=== PATIENT | female | born 1980 | race Caucasian/White ===

== ENCOUNTER 2017-03-10 05:52 | Outpatient (CLI) | payer BC ==
[~2017-03-10] VITALS: Ht 167.6 cm; Wt 104.8 kg
[~2017-03-10 05:52] MED LIST: ACHD5005 PO; BIRTH CONTROL PILL; CPR500T PO; CTLP20T PO; DCS100C PO; EST.1TD TD; HYDR-3583 PO; IBP600T1 PO; Ibuprofen PO; METR250T PO; METR500T PO; NAPR550T PO; NAPROXEN PO; PREN1TAB39 PO; VALA500T4 PO
== END 2017-03-10 12:50 ==
LOC: PREOP 05:52
PROVIDERS: ATTEND Surgery
DX: Z01.818 Encounter for other preprocedural examination (principal); K62.5 Hemorrhage of anus and rectum; Z80.0 Family history of malignant neoplasm of digestive organs

== ENCOUNTER 2017-03-21 10:43 | Day surgery (SDC) | payer OTHER ==
[~2017-03-21] VITALS: Ht 167.6 cm; Wt 104.8 kg
[2017-03-21] MEDS ORDERED: NS IV 500 ML 500 ML ONE (10:47)
[2017-03-21] MEDS ORDERED: NS IV 500 ML 500 ML IV PRN (11:20)
[2017-03-21] MEDS ORDERED: fentaNYL INJECTION 100 MCG/2 ML AMP ONE ×2 (11:30→11:31)
[2017-03-21] MEDS ORDERED: MIDAZOLAM 2 MG/2 ML (VERSED) VIAL ONE ×4 (11:31)
[2017-03-21 11:35] VITALS: BP 129/78
[2017-03-21] MEDS: fentaNYL INJECTION 100 MCG/2 ML AMP IVP PRN ×4 (12:05→12:17)
[2017-03-21] MEDS: MIDAZOLAM 2 MG/2 ML (VERSED) VIAL IVP PRN ×4 (12:06→12:16)
--- NOTE | 2017-03-21 12:07 | Conscious Sedation/ASA ---
Conscious Sedation Pre-Proced Time Reviewed: 11:41 ASA Class: 2 Airway Mallampati Classification: ([place] appropriate class) I. II. III, IV Lungs Heart ASA score ASA 1: a normal healthy patient ASA 2: a patient with a mild systemic disease (mid diabetes, controlled hypertension, obesity ASA 3: a patient with a severe systemic disease that limits activity (angina , COPD, prior Myocardial infarction) ASA 4: a patient with an incapacitating disease that is a constant threat to life (CHF, renal failure) ASA 5: a moribund patient not expected to survive 24 hrs. (ruptured aneurysm) ASA 6: a declared brain patient whose organs are being harvested. For emergent operations, add the letter E after the classification Grade 2 Sedation Plan: Discussed options with patient/fam Note The patient is an appropriate candidate to undergo the planned procedure, sedation, and anesthesia. The patient immediately re-assessed prior to indication. EBER FRAZIER MD Mar 21, 2017 12:07 pm
--- NOTE | 2017-03-21 12:07 | History & Physicial ---
History of Present Illness History of Present Illness Reason for visit/HPI to undergo colonoscopy regarding rectal bleeding and on the basis of a personal history of polyps, along with a family history of colon cancer Date of Admission Date Seen by Provider: Mar 21, 2017 Time Seen by Provider: 12:05 I consulted on this patient on 03/21/17 12:05 Attending Physician Eber Frazier MD Admitting Physician Luis Haque MD Consult Allergies and Home Medications Allergies Coded Allergies: latex (Unverified Allergy, Mild, RASH, 03/10/17) telithromycin (Unverified Allergy, Unknown, HIVES, 03/10/17) Uncoded Allergies: TAPE (Allergy, Unknown, 04/12/06) Home Medications No Active Prescriptions or Reported Meds Past Nxbzjak-Ivtyvw-Nycuyu Hx Patient Social History Marrital Status: Employed/Student: employed Alcohol Use: Denies Use Recreational Drug Use: No Smoking Status: Current Everyday Smoker Type Used: Cigarettes Recent Foreign Travel: No Contact w/other who traveled: No Recent Hopitalizations: No Recent Infectious Disease Expo: No Immunizations Up To Date Tetanus Booster (TDap): Less than 5yrs Date of Influenza Vaccine: May 05, 2013 Seasonal Allergies Seasonal Allergies: No Surgeries HX Surgeries: Yes (HIATAL HERNIA REP x2, x3, D&C x3, ELBOW SX) Surgeries: Hysterectomy, Oophorectomy Respiratory Hx Respiratory Disorders: No Cardiovascular Hx Cardiovascular Disorders: No Neurological Hx Neurological Disorders: No Reproductive System Hx Reproductive Disorders: No Sexually Transmitted Disease: No HIV/AIDS: No Female Reproductive Disorders: Denies, Ovarian Cyst Genitourinary Hx Genitourinary Disorders: No Gastrointestinal Hx Gastrointestinal Disorders: Yes (RECTAL BLEEDING) Musculoskeletal Hx Musculoskeletal Disorders: No Endocrine Hx Endocrine Disorders: No HEENT HX ENT Disorders: Yes (GLASSES/CONTACTS) Loss of Vision: Bilateral Hearing Impairment: Denies Cancer Hx Cancer: No Psychosocial Hx Psychiatric Problems: No Integumentary HX Skin/Integumentary Disorder: No Blood Transfusions Hx Blood Disorders: No Adverse Reaction to a Blood Tr: No (N/A) Family Medical History Family Hx: Arthritis 19 MOTHER Colon cancer 19 FATHER Hypercholesterolemia 19 FATHER Constitutional: no symptoms reported EENTM: no symptoms reported Respiratory: no symptoms reported Cardiovascular: no symptoms reported Gastrointestinal: other Genitourinary: no symptoms reported Musculoskeletal: no symptoms reported Skin: no symptoms reported Psychiatric/Neurological: No Symptoms Reported Physical Exam Vital Signs Vital Sign - Last 12Hours 03/21/17 11:35 Temp 99.1 Pulse 75 Resp 18 B/P (MAP) 129/78 Pulse Ox 96 O2 Delivery Room Air Capillary Refill : General Appearance: No Apparent Distress HEENT: Normal ENT Inspection Neck: Normal Inspection Respiratory: Lungs Clear Gastrointestinal: Non Tender, Soft Rectal: Deferred Extremity: Normal Inspection Neurologic/Psychiatric: Alert, Oriented x3 Skin: Warm/Dry Assessment/Plan Assessment and Plan lady with a personal history of polyps and a family history of colon cancer. Ongoing rectal bleeding. Colonoscopy reasonable and would be performed today. Problems: EBER FRAZIER MD Mar 21, 2017 12:07 pm
--- NOTE | 2017-03-21 12:28 | Endo Procedure Record ---
Endo Procedure Report Date of Procedure Mar 21, 2017 Surgeon (s) EBER FRAZIER MD Post Procedure/Op Diagnosis internal hemorrhoids Procedure Performed colonoscopy to cecum Description of Procedure Anesthesia Type: Conscious Sedation Specimen(s) collected/removed none Description of the Procedure Indication for procedure: This lady came in for colonoscopy on the basis of a previous history of polyps and a family history of colon cancer. In addition, she reported intermittent rectal bleeding over the past several weeks. Informed consent was obtained after reviewing the procedure in detail. Description of the procedure: She was placed in left lateral decubitus position and her vital signs were monitored. Conscious sedation was achieved using Versed and fentanyl. Digital rectal examination was unremarkable. The colonoscope was then introduced into the rectum and advanced all the way to the cecum. The scope was then withdrawn slowly and the mucosa examined in a systematic fashion. Findings: Internal hemorrhoids, the possible source of her bleeding. No recurrent polyps were found. She tolerated the procedure well and was taken back to the nursing area in a stable condition. Impression: Rectal bleeding due to hemorrhoids. Will treat conservatively. Positive family history. Recommend surveillance colonoscopy in 5 years. Copies To: SARTHAK NINA MD, XAVIER M MD Mar 21, 2017 12:27 pm
[2017-03-21 12:50] VITALS: BP 135/78
[2017-03-21 13:20] VITALS: BP 138/77
== END 2017-03-21 13:35 | disposition home or self-care (01) ==
LOC: ENDO 10:43
PROVIDERS: ATTEND Surgery
DX: K64.8 Other hemorrhoids (principal); Z86.010 Personal history of colon polyps; Z80.0 Family history of malignant neoplasm of digestive organs; F17.210 Nicotine dependence, cigarettes, uncomplicated

== ENCOUNTER 2018-05-22 16:51 | Emergency (ER) | payer OTHER ==
[~2018-05-22] VITALS: Ht 167.6 cm; Wt 99.8 kg
[2018-05-22] MEDS ORDERED: METF-399 PO (17:16)
[2018-05-22 18:22] LABS: BASOPHILS # (AUTO) 0.1 10^3/uL (0.0-0.1); BASOPHILS % (AUTO) 1 % (0-10); EOSINOPHILS # (AUTO) 0.2 10^3/uL (0.0-0.3); EOSINOPHILS % (AUTO) 3 % (0-10); HEMATOCRIT 42 % (35-52); HEMOGLOBIN 14.5 G/DL (11.5-16.0); LYMPHOCYTES # (AUTO) 3.4 X 10^3 (1.0-4.0); LYMPHOCYTES % (AUTO) 44 % (12-44); MEAN CORPUSCULAR HEMOGLOBIN 30 PG (25-34); MEAN CORPUSCULAR HGB CONC 35 G/DL (32-36); MEAN CORPUSCULAR VOLUME 86 FL (80-99); MEAN PLATELET VOLUME 10.7 FL (7.4-10.4); MONOCYTES # (AUTO) 0.5 X 10^3 (0.0-1.0); MONOCYTES % (AUTO) 6 % (0-12); NEUTROPHILS # (AUTO) 3.6 X 10^3 (1.8-7.8); NEUTROPHILS % (AUTO) 47 % (42-75); PLATELET COUNT 247 10^3/uL (130-400); RED BLOOD COUNT 4.88 10^6/uL (4.35-5.85); RED CELL DISTRIBUTION WIDTH 13.7 % (10.0-14.5); WHITE BLOOD COUNT 7.7 10^3/uL (4.3-11.0)
--- NOTE | 2018-05-22 18:27 | ED General ---
General Chief Complaint: Eye Problems Stated Complaint: VISION PROBLEMS Nursing Triage Note: STATES AROUND 1500 TODAY HER EYES FELT LIKE THEY CROSSED AND EVERYTHING WENT BLACK FOR A SPLIT SECONED. CALLED DR NINA WHO TOLD HER TO COME TO THE ER. PT IS DIABETIC AND HER BLOOD SUGAR WAS OK AT THE TIME. Nursing Sepsis Screen: No Definite Risk Source of Information: Patient Exam Limitations: No Limitations History of Present Illness Date Seen by Provider: May 22, 2018 Time Seen by Provider: 18:12 Initial Comments Here with report of feeling like she was going pass out at work today. States that she felt like she was getting weak and her eyes crossed and then her vision went black. Overall the episode lasted about 2 minutes. She did have coworkers around at the time. She did go home afterwards and check her blood sugar which was 157. She's recently had blood sugar problems and has had success with metformin. 3 weeks ago this was increased from 500 twice a day 2000 mg twice a day. She reports tolerating that well. Denies nausea or vomiting. Denies recent illness or injury. She did not fall during this episode and did not hit anything. States that she felt foggy afterwards but that is improving somewhat now. Reports eating and drinking okay. Timing/Duration: Gone Now, Other (Onset approximately 3 hours ago and lasted for one to 2 minutes.) Severity: Moderate Modifying Factors: improves with Rest Associated Systoms: No Chest Pain, No Cough, No Fever/Chills, No Nausea/ Vomiting, No Shortness of Air; Weakness Allergies and Home Medications Allergies Coded Allergies: latex (Unverified Allergy, Mild, RASH, 03/10/17) telithromycin (Unverified Allergy, Unknown, HIVES, 03/10/17) Uncoded Allergies: TAPE (Allergy, Unknown, 04/12/06) Home Medications Metformin HCl 1,000 Mg Tablet, 1,000 MG PO BID, (Reported) Patient Home Medication List Home Medication List Reviewed: Yes Review of Systems Review of Systems Constitutional: see HPI; No chills, No fever EENTM: blurred vision; No eye pain Respiratory: no symptoms reported Cardiovascular: see HPI, syncope Gastrointestinal: No abdominal pain, No nausea, No vomiting Genitourinary: No dysuria, No pain : No Musculoskeletal: no symptoms reported All Other Systems Reviewed Negative Unless Noted: Yes Past Elkkzxm-Mlbnno-Oejzuo Hx Past Med/Social Hx: Reviewed Nursing Past Med/Soc Hx Patient Social History Alcohol Use: Denies Use Recreational Drug Use: No Smoking Status: Current Everyday Smoker Type Used: Cigarettes Recent Foreign Travel: No Contact w/Someone Who Travel: No Recent Infectious Disease Expo: No Recent Hopitalizations: No Immunizations Up To Date Tetanus Booster (TDap): Less than 5yrs PED Vaccines UTD: No Date of Influenza Vaccine: May 05, 2013 Seasonal Allergies Seasonal Allergies: No Past Medical History Surgeries: Yes (HIATAL HERNIA REP x2, x3, D&C x3, ELBOW SX) Hysterectomy, Oophorectomy Respiratory: No Cardiac: No Neurological: No Reproductive Disorders: No Female Reproductive Disorders: Denies, 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 Sexually Transmitted Disease: No HIV/AIDS: No Genitourinary: No Gastrointestinal: Yes (RECTAL BLEEDING) Musculoskeletal: No Endocrine: Yes Diabetes, Non-Insulin dep HEENT: No Loss of Vision: Bilateral Hearing Impairment: Denies Cancer: No Psychosocial: No Integumentary: No Blood Disorders: No Adverse Reaction/Blood Tranf: No (N/A) Family Medical History Reviewed Nursing Family Hx Arthritis 19 MOTHER Colon cancer 19 FATHER Hypercholesterolemia 19 FATHER Physical Exam Vital Signs Vital Signs - First Documented 05/22/18 17:11 Temp 98.9 Pulse 95 Resp 16 B/P (MAP) 133/87 (102) Pulse Ox 95 O2 Delivery Room Air Capillary Refill : Less Than 3 Seconds Height, Weight, BMI Height: 5'6.00" Weight: 220lbs. 0.0oz. 99.463253xa; 37.3 BMI Method:Stated General Appearance: No Apparent Distress, WD/WN HEENT: PERRL/EOMI, Pharynx Normal Neck: Non Tender, Supple Respiratory: Lungs Clear, Normal Breath Sounds Cardiovascular: Regular Rate, Rhythm, No Murmur Gastrointestinal: Non Tender, Soft Back: Normal Inspection, No CVA Tenderness, No Vertebral Tenderness Extremity: Normal Range of Motion, Non Tender Neurologic/Psychiatric: Alert, Oriented x3, No Motor/Sensory Deficits, Normal Mood/Affect, dragger out II-XII Norm as Tested Skin: Normal Color, Warm/Dry Progress/Results/Core Measures Suspected Sepsis Recent Fever Within 48 Hours: No Infection Criteria Present: None New/Unexplained Altered Menta: No Sepsis Screen: No Definite Risk SIRS Temperature:98.9 Pulse: 95 Respiratory Rate: 16 Laboratory Tests 05/22/18 18:14: White Blood Count 7.7 Blood Pressure 133 /87 Mean: 102 Laboratory Tests 05/22/18 18:14: Creatinine 0.73, INR Comment 0.9, Platelet Count 247, Total Bilirubin 0.1 Results/Orders Lab Results Laboratory Tests Test 05/22/18 17:27 05/22/18 18:14 05/22/18 19:30 Range/Units Glucometer 110 70-110 MG/DL White Blood Count 7.7 4.3-11.0 10^3/uL Red Blood Count 4.88 4.35-5.85 10^6/uL Hemoglobin 14.5 11.5-16.0 G/DL Hematocrit 42 35-52 % Mean Corpuscular Volume 86 80-99 FL Mean Corpuscular Hemoglobin 30 25-34 PG Mean Corpuscular Hemoglobin Concent 35 32-36 G/DL Red Cell Distribution Width 13.7 10.0-14.5 % Platelet Count 247 130-400 10^3/uL Mean Platelet Volume 10.7 H 7.4-10.4 FL Neutrophils (%) (Auto) 47 42-75 % Lymphocytes (%) (Auto) 44 12-44 % Monocytes (%) (Auto) 6 0-12 % Eosinophils (%) (Auto) 3 0-10 % Basophils (%) (Auto) 1 0-10 % Neutrophils # (Auto) 3.6 1.8-7.8 X 10^3 Lymphocytes # (Auto) 3.4 1.0-4.0 X 10^3 Monocytes # (Auto) 0.5 0.0-1.0 X 10^3 Eosinophils # (Auto) 0.2 0.0-0.3 10^3/uL Basophils # (Auto) 0.1 0.0-0.1 10^3/uL Prothrombin Time 11.7 L 12.2-14.7 SEC INR Comment 0.9 0.8-1.4 Activated Partial Thromboplast Time 28 24-35 SEC D-Dimer 0.37 0.00-0.49 UG/ML Sodium Level 141 135-145 MMOL/L Potassium Level 4.2 3.6-5.0 MMOL/L Chloride Level 106 98-107 MMOL/L Carbon Dioxide Level 24 21-32 MMOL/L Anion Gap 11 5-14 MMOL/L Blood Urea Nitrogen 10 7-18 MG/DL Creatinine 0.73 0.60-1.30 MG/DL Estimat Glomerular Filtration Rate > 60 BUN/Creatinine Ratio 14 Glucose Level 96 70-105 MG/DL Calcium Level 9.5 8.5-10.1 MG/DL Corrected Calcium 9.2 8.5-10.1 MG/DL Total Bilirubin 0.1 0.1-1.0 MG/DL Aspartate Amino Transf (AST/SGOT) 10 5-34 U/L Alanine Aminotransferase (ALT/SGPT) 11 0-55 U/L Alkaline Phosphatase 73 40-136 U/L Total Protein 7.0 6.4-8.2 GM/DL Albumin 4.4 3.2-4.5 GM/DL Thyroid Stimulating Hormone (TSH) 0.97 0.35-4.94 UIU/ML Serum Test, Qualitative NEGATIVE NEGATIVE Urine Color YELLOW Urine Clarity CLEAR Urine pH 6 5-9 Urine Specific [place] 1.020 1.016-1.022 Urine Protein NEGATIVE NEGATIVE Urine Glucose (UA) NEGATIVE NEGATIVE Urine Ketones 1+ H NEGATIVE Urine Nitrite NEGATIVE NEGATIVE Urine Bilirubin NEGATIVE NEGATIVE Urine Urobilinogen NORMAL NORMAL MG/DL Urine Leukocyte Esterase 1+ H NEGATIVE Urine RBC (Auto) NEGATIVE NEGATIVE Urine RBC NONE /HPF Urine WBC 0-2 /HPF Urine Squamous Epithelial Cells 5-10 /HPF Urine Crystals NONE /LPF Urine Bacteria TRACE /HPF Urine Casts NONE /LPF Urine Mucus NEGATIVE /LPF Urine Culture Indicated NO My Orders Orders - YOHAN SQUIRES MD Thyroid Stimulating Hormone (05/22/18 18:24) Ua Culture If Indicated (05/22/18 19:28) Vital Signs/I&O 05/22/18 17:11 Temp 98.9 Pulse 95 Resp 16 B/P (MAP) 133/87 (102) Pulse Ox 95 O2 Delivery Room Air Capillary Refill : Less Than 3 Seconds Blood Pressure Mean: 102 Progress Note : Progress Note Seen and evaluated. IV, labs, UA, EKG ordered. Monitor patient. 1929: UA sent for evaluation. Overall patient is feeling better and walking and talking without difficulty. 1955: UA negative. Discharged home with return precautions. Patient verbalize understanding instructions and agreement with plan. We will send a copy the chart Dr. Nina. ECG Initial ECG Impression Date: May 22, 2018 Initial ECG Impression Time: 17:42 Initial ECG Rate: 68 Initial ECG Rhythm: Normal Sinus Initial ECG Comparisson: No Previous ECG Available Comment Sinus rhythm with normal axis. No evidence of ST elevation [place]. No previous available for comparison. Interpreted by me. Departure Impression Primary Impression: Syncope Qualified Codes: R55 - Syncope and collapse Disposition: 01 HOME, SELF-CARE Condition: Improved Departure-Patient Inst. Decision time for Depature: 19:57 Referrals: SARTHAK NINA MD (PCP/Family) Primary Care Physician Patient Instructions: Syncope (Fainting) (DC) Add. Discharge Instructions: All discharge instructions reviewed with patient and/or family. Voiced understanding. Drink plenty of fluids and eat a normal diet. Follow up with your Dr. in one to 2 days for recheck and further evaluation. Return for worse pain, fever, vomiting, weakness, rhythm problems or other concerns as needed. YOHAN SQUIRES MD May 22, 2018 18:27
[2018-05-22 18:39] LABS: FIBRIN DEGRADATION PRODUCTS 0.37 UG/ML (0.00-0.49); INR 0.9 (0.8-1.4); PROTHROMBIN TIME PATIENT 11.7 SEC (12.2-14.7)
[2018-05-22 18:49] LABS: ALANINE AMINOTRANSFERASE 11 U/L (0-55); ALBUMIN 4.4 GM/DL (3.2-4.5); ALKALINE PHOSPHATASE 73 U/L (40-136); BILIRUBIN,TOTAL 0.1 MG/DL (0.1-1.0); BUN/CREATININE RATIO 14; CALCIUM 9.5 MG/DL (8.5-10.1); CARBON DIOXIDE 24 MMOL/L (21-32); CHLORIDE 106 MMOL/L (98-107); CREATININE SERUM 0.73 MG/DL (0.60-1.30); GFR ESTIMATED > 60; GLUCOSE 96 MG/DL (70-105); POTASSIUM 4.2 MMOL/L (3.6-5.0); SODIUM 141 MMOL/L (135-145)
[2018-05-22 19:37] LABS: BILIRUBIN,URINE NEGATIVE (NEGATIVE); CLARITY,URINE CLEAR; COLOR,URINE YELLOW; GLUCOSE, URINE (UA) NEGATIVE (NEGATIVE); KETONES,URINE 1+ (NEGATIVE); LEUKOCYTE ESTERASE ,URINE 1+ (NEGATIVE); NITRITE,URINE NEGATIVE (NEGATIVE); PH,URINE 6 (5-9); PROTEIN,URINE NEGATIVE (NEGATIVE); UROBILINOGEN,URINE NORMAL (NORMAL)
[2018-05-22 19:50] LABS: BACTERIA,URINE TRACE /HPF; WBC,URINE 0-2 /HPF
[2018-05-22 20:16] VITALS: BP 0/0
== END 2018-05-22 20:16 | disposition home or self-care (01) ==
LOC: EDUNIT# 16:51 → ER 16:52
DX: R55 Syncope and collapse (principal); E11.9 Type 2 diabetes mellitus without complications; F17.210 Nicotine dependence, cigarettes, uncomplicated; Z98.890 Other specified postprocedural states; Z90.710 Acquired absence of both cervix and uterus; Z82.49 Family history of ischemic heart disease and other diseases of the circulatory system; Z87.448 Personal history of other diseases of urinary system; Z80.0 Family history of malignant neoplasm of digestive organs; Z87.19 Personal history of other diseases of the digestive system; Z91.040 Latex allergy status; Z88.0 Allergy status to penicillin
CPT/HCPCS: 36415; 80053; 81000; 82962; 84443; 84703; 85025; 85379; 85610; 85730; 93005

== ENCOUNTER 2018-10-10 08:12 | Emergency (ER) | payer OTHER ==
[~2018-10-10] VITALS: Ht 167.6 cm; Wt 99.8 kg
[~2018-10-10 08:12] MED LIST changes: +METF-399 PO
[2018-10-10] MEDS ORDERED: ASPIRIN 81 MG CHEW (CHILDREN'S ASA) PO ONE (08:30)
[2018-10-10] MEDS ORDERED: LIDOCAINE 2% VISCOUS 15 ML UDC PO ONE (08:30)
[2018-10-10] MEDS ORDERED: PANTOPRAZOLE 40 MG (PROTONIX) VIAL IV ONE (08:30)
[2018-10-10] MEDS ORDERED: ANTACID SUSP 30 ML UDC (MYLANTA) PO ONE (08:30)
--- NOTE | 2018-10-10 08:46 | ED Chest Pain ---
General Chief Complaint: Chest Pain Stated Complaint: ACID REFLUX,NUMB ARM,PCP SENT HER OVER. Source: patient Exam Limitations: no limitations (YOHAN SQUIRES MD) History of Present Illness Date Seen by Provider: Oct 10, 2018 Time Seen by Provider: 08:22 Initial Comments Here with report of acid reflux problems that started 4 days ago and then worsened through the weekend. Noted on Tuesday night that she had left arm pain. This progressively weak and intermittently until today (Tuesday) when she had reflux problems, left arm and shoulder pain and now pain that goes to her left jaw. She is diabetic and does smoke. Never had problems like this before with respect to the arm and jaw pain but does have reflux problems. She has had hiatal hernia and repair. She's had previous cholecystectomy. Usually Zantac helps but it is not helping this weekend for any length of time. Denies vomiting , sweating or breathing problems. Denies other concerns. Timing/Duration: 3-4 days Severity/Quality: moderate, burning Location: central Radiation: jaw, arms, shoulders Activities at Onset: none Prior CP/Workup: no prior chest pain Modifying Factors: improves with antacids, improves with rest ASA po REAL ESTATE ASSET MANAGER: No NTG SL REAL ESTATE ASSET MANAGER: No Associated Symptoms: abdominal pain; No back pain, No diaphoresis, No dizziness , No edema, No fever/chills; heartburn; No nausea/vomiting, No shortness of breath, No weakness (YOHAN SQUIRES MD) Allergies and Home Medications Allergies Coded Allergies: latex (Unverified Allergy, Mild, RASH, 03/10/17) telithromycin (Unverified Allergy, Unknown, HIVES, 03/10/17) Uncoded Allergies: TAPE (Allergy, Unknown, 04/12/06) Home Medications Metformin HCl 1,000 Mg Tablet, 1,000 MG PO BID, (Reported) Patient Home Medication List Home Medication List Reviewed: Yes (YOHAN SQUIRES MD) Review of Systems Review of Systems Constitutional: see HPI; No chills, No fever EENTM: See HPI; No Ear Pain Respiratory: Denies Cough, Denies Shortness of Air Cardiovascular: See HPI Gastrointestinal: See HPI; Denies Constipated, Denies Diarrhea Genitourinary: No Symptoms Reported Musculoskeletal: no symptoms reported Skin: no symptoms reported Psychiatric/Neurological: No Symptoms Reported (YOHAN SQUIRES MD) All Other Systems Reviewed Negative Unless Noted: Yes (YOHAN SQUIRES MD) Past Fabclch-Lnrvck-Xwduwd Hx Past Med/Social Hx: Reviewed Nursing Past Med/Soc Hx (YOHAN SQUIRES MD) Patient Social History Alcohol Use: Occasionally Uses Recreational Drug Use: No Smoking Status: Current Everyday Smoker Type Used: Cigarettes Recent Foreign Travel: No Contact w/Someone Who Travel: No Recent Hopitalizations: No (YOHAN SQUIRES MD) Immunizations Up To Date Tetanus Booster (TDap): Less than 5yrs PED Vaccines UTD: No Date of Influenza Vaccine: May 05, 2013 (YOHAN SQUIRES MD) Seasonal Allergies Seasonal Allergies: No (YOHAN SQUIRES MD) Past Medical History Surgeries: Yes (HIATAL HERNIA REP x2, x3, D&C x3, ELBOW SX) Gallbladder, Hysterectomy, Oophorectomy, Orthopedic Respiratory: No Cardiac: No Neurological: No Reproductive Disorders: No Female Reproductive Disorders: Denies, Ovarian Cyst CERTIFIED GENETIC COUNSELOR History: Hysterectomy Sexually Transmitted Disease: No HIV/AIDS: No Genitourinary: No Gastrointestinal: Yes (RECTAL BLEEDING) Musculoskeletal: No Endocrine: Yes Diabetes, Non-Insulin dep HEENT: No Loss of Vision: Bilateral Hearing Impairment: Denies Cancer: No Psychosocial: No Integumentary: No Blood Disorders: No Adverse Reaction/Blood Tranf: No (N/A) (YOHAN SQUIRES MD) Family Medical History Reviewed Nursing Family Hx (YOHAN SQUIRES MD) Arthritis 19 MOTHER Colon cancer 19 FATHER Hypercholesterolemia 19 FATHER Physical Exam Vital Signs Vital Signs - First Documented 10/10/18 08:15 Temp 98.1 Pulse 79 Resp 18 B/P (MAP) 156/91 (112) Pulse Ox 100 O2 Delivery Room Air (AKILAH MCDONALD) Vital Signs Capillary Refill : (YOHAN SQUIRES MD) Height, Weight, BMI Height: 5'6.00" Weight: 220lbs. 0.0oz. 99.022840yd; 37.3 BMI Method:Stated General Appearance: No Apparent Distress, WD/WN HEENT: PERRL/EOMI, Pharynx Normal Neck: Non Tender, Supple Respiratory: Lungs Clear, Normal Breath Sounds Cardiovascular: Regular Rate, Rhythm, No Murmur Gastrointestinal: Non Tender, Soft Extremity: Normal Inspection, Normal Range of Motion, Non Tender, No Calf Tenderness Neurologic/Psychiatric: Alert, Oriented x3 Skin: Normal Color, Warm/Dry (YOHAN SQUIRES MD) Progress/Results/Core Measures Results/Orders Lab Results Laboratory Tests Test 10/10/18 08:50 10/10/18 09:23 10/10/18 13:21 Range/Units White Blood Count 9.3 4.3-11.0 10^3/uL Red Blood Count 4.88 4.35-5.85 10^6/uL Hemoglobin 14.2 11.5-16.0 G/DL Hematocrit 42 35-52 % Mean Corpuscular Volume 86 80-99 FL Mean Corpuscular Hemoglobin 29 25-34 PG Mean Corpuscular Hemoglobin Concent 34 32-36 G/DL Red Cell Distribution Width 13.9 10.0-14.5 % Platelet Count 259 130-400 10^3/uL Mean Platelet Volume 10.5 H 7.4-10.4 FL Neutrophils (%) (Auto) 63 42-75 % Lymphocytes (%) (Auto) 29 12-44 % Monocytes (%) (Auto) 6 0-12 % Eosinophils (%) (Auto) 2 0-10 % Basophils (%) (Auto) 1 0-10 % Neutrophils # (Auto) 5.8 1.8-7.8 X 10^3 Lymphocytes # (Auto) 2.7 1.0-4.0 X 10^3 Monocytes # (Auto) 0.6 0.0-1.0 X 10^3 Eosinophils # (Auto) 0.1 0.0-0.3 10^3/uL Basophils # (Auto) 0.1 0.0-0.1 10^3/uL Prothrombin Time 11.9 L 12.2-14.7 SEC INR Comment 0.9 0.8-1.4 Activated Partial Thromboplast Time 30 24-35 SEC D-Dimer 0.33 0.00-0.49 UG/ML Sodium Level 141 135-145 MMOL/L Potassium Level 3.9 3.6-5.0 MMOL/L Chloride Level 106 98-107 MMOL/L Carbon Dioxide Level 24 21-32 MMOL/L Anion Gap 11 5-14 MMOL/L Blood Urea Nitrogen 8 7-18 MG/DL Creatinine 0.76 0.60-1.30 MG/DL Estimat Glomerular Filtration Rate > 60 BUN/Creatinine Ratio 11 Glucose Level 102 70-105 MG/DL Calcium Level 9.7 8.5-10.1 MG/DL Corrected Calcium 9.5 8.5-10.1 MG/DL Magnesium Level 2.0 1.8-2.4 MG/DL Total Bilirubin 0.2 0.1-1.0 MG/DL Aspartate Amino Transf (AST/SGOT) 14 5-34 U/L Alanine Aminotransferase (ALT/SGPT) 10 0-55 U/L Alkaline Phosphatase 65 40-136 U/L Myoglobin 32.7 61.2 10.0-92.0 NG/ML Troponin I < 0.028 < 0.028 <0.028 NG/ML Total Protein 6.6 6.4-8.2 GM/DL Albumin 4.2 3.2-4.5 GM/DL Lipase 38 8-78 U/L Thyroid Stimulating Hormone (TSH) 0.69 0.35-4.94 UIU/ML (AKILAH MCDONALD) Medications Given in ED Current Medications Medications Dose Ordered Sig/Beatriz Route Start Time Stop Time Status Last Admin Dose Admin Al Hydrox/Mg Hydrox/Simethicone 30 ml ONCE ONCE PO 10/10/18 08:30 10/10/18 08:31 DC 10/10/18 09:00 30 ML Aspirin 324 mg ONCE ONCE PO 10/10/18 08:30 10/10/18 08:31 DC 10/10/18 09:00 324 MG Diphenhydramine HCl 50 mg ONCE ONCE IVP 10/10/18 09:45 10/10/18 09:46 DC 10/10/18 09:45 50 MG Iohexol 100 ml ONCE ONCE IV 10/10/18 10:15 10/10/18 10:51 DC 10/10/18 12:00 100 ML Lidocaine HCl 15 ml ONCE ONCE PO 10/10/18 08:30 10/10/18 08:31 DC 10/10/18 09:00 15 ML Morphine Sulfate 10 mg STK-MED ONCE .ROUTE 10/10/18 09:25 10/10/18 09:31 DC 10/10/18 09:33 10 MG Pantoprazole 40 mg ONCE ONCE IV 10/10/18 08:30 10/10/18 08:31 DC 10/10/18 09:00 40 MG Sodium Chloride 100 ml ONCE ONCE IV 10/10/18 10:15 10/10/18 10:51 DC 10/10/18 12:00 80 ML (AKILAH MCDONALD STUDENT) Vital Signs/I&O 10/10/18 10/10/18 08:15 08:15 Temp 98.1 Pulse 79 Resp 18 B/P (MAP) 156/91 (112) Pulse Ox 100 O2 Delivery Room Air (AKILAH MCDONALD STUDENT) Progress Progress Note : Progress Note Seen and evaluated. IV, labs, EKG and chest x-ray ordered. ASA 324 mg by mouth ordered. GI cocktail and Protonix 40 mg IV ordered. Monitor patient. Patient did get morphine 4 mg IV and then ultimately Toradol 30 mg IV. After morphine she did have some itching so did get Benadryl 50 mg IV. Patient still had some pain so CT abdomen and pelvis ordered. Monitor patient. 1400: Patient had repeat labs and EKG and this did not show any significant change in troponin and EKG remains normal. CT abdomen pelvis is negative. Patient is completely resolved currently. Ultimately she would like to go home. We did have a conversation about follow-up and she has follow up with Dr. Nina on and she will keep that appointment. She will start omeprazole [id number] pending his evaluation. We also discussed the need for surgical follow-up for upper endoscopy. That can be set up her primary doctor. Discharged home with return precautions. Patient verbalize understanding instructions and agreement with plan. (YOHAN SQUIRES MD) Initial ECG Impression Date: Oct 10, 2018 Initial ECG Impression Time: 08:22 Initial ECG Rate: 78 Initial ECG Rhythm: Normal Sinus Initial ECG Impression: Normal Initial ECG Comparisson: No Previous ECG Available Comment Sinus rhythm with normal axis. No evidence of ST elevation NV. Similar to previous of 05/22/18. Interpreted by me. (YOHAN SQUIRES MD) Initial ECG Comparisson: Unchanged (AKILAH MCDONALD STUDENT) Diagnostic Imaging Diagonstic Imaging: Xray Plain Films/CT/US/NM/MRI: chest Comments [facility] [place], [place] NAME: YODIT EATON [facility] REC#: [id number] PT STATUS: REG ER : 1980 PHYSICIAN: YOHAN SQUIRES MD ADMIT DATE: 10/10/18/ER Draft Date of Exam:10/10/18 CHEST 1 VIEW, AP/PA ONLY Clinical indication: Patient with acid reflux with tingling in left arm times approximately 4 days. Patient states left facial numbness started this morning. Exam: Portable chest x-ray upright view. Comparisons: None. Findings: Limited evaluation of the anatomical structures due to patient body habitus. Lungs/pleura: Lungs are clear. There is no pneumothorax. There is no pleural effusion. Mediastinum: Unremarkable. Pulmonary vasculature: Unremarkable. Heart: Unremarkable. Bones/extrathoracic soft tissue: Unremarkable. Impression: There is no radiographic evidence of acute cardiopulmonary process. Dictated on workstation # [id number] Dict: 10/10/18 0910 Trans: 10/10/18 0915 [facility] [id number] Interpreted by: HAWA PATINO MD Electronically signed by: (YOHAN SQUIRES MD) Diagonstic Imaging: CT Plain Films/CT/US/NM/MRI: abdomen, pelvis Comments [facility] [place] [place] NAME: YODIT EATON [facility] REC#: [id number] PT STATUS: REG ER : 1980 PHYSICIAN: YOHAN SQUIRES MD ADMIT DATE: 10/10/18/ER Draft Date of Exam:10/10/18 CT ABDOMEN/PELVIS W PROCEDURE: CT abdomen and pelvis with contrast. TECHNIQUE: Multiple contiguous axial images were obtained through the abdomen and pelvis after administration of intravenous contrast. INDICATION: Upper abdominal pain. History of hiatal hernia surgery. COMPARISON: CT abdomen and pelvis with IV contrast 05/04/2014. FINDINGS: Lung bases are clear. Cholecystectomy. No hiatal hernia. The liver, pancreas, spleen, adrenals, kidneys, collecting systems, and unopacified bladder are negative. Hysterectomy. Appendectomy. No free intraperitoneal air or fluid. No lymphadenopathy. No evidence of bowel obstruction or inflammation. No acute osseous findings. IMPRESSION: No acute CT findings in the abdomen or pelvis. Chronic findings as above. Dictated on workstation # [id number] Dict: 10/10/18 1220 Trans: 10/10/18 1230 [id number] Interpreted by: TIM SANCHEZ MD Electronically signed by: Time of Consult: 12:20 (AKILAH MCDONALD STUDENT) Departure Impression Primary Impression: Upper abdominal pain Additional Impression: Chest pain Qualified Codes: R07.9 - Chest pain, unspecified Disposition: HOME, SELF-CARE Condition: Improved Departure-Patient Inst. Decision time for Depature: 14:10 (YOHAN SQUIRES MD) Referrals: SARTHAK NINA MD (PCP/Family) Primary Care Physician Patient Instructions: Acute Abdomen (Belly Pain), Adult (DC), Chest Pain (DC) Add. Discharge Instructions: All discharge instructions reviewed with patient and/or family. Voiced understanding. Follow-up with your doctor on for recheck and further evaluation and for discussion of referral to surgeon for upper endoscopy (scope) and possible referral to cardiology for stress test as indicated. You may take omeprazole qmmt-vfa-esuoour 20 mg one tab daily for the next 2 weeks or until changed by her doctor. Drink plenty of fluids and eat a light diet. Return for worse pain, fever, vomiting, weakness, breathing problems, chest pain or other concerns as needed. Copy Copies To 1: SARTHAK NINA MD, TIMOTHY D MD Oct 10, 2018 08:46 AKILAH MCDONALD STUDENT Oct 10, 2018 13:32
[2018-10-10 09:05] LABS: BASOPHILS # (AUTO) 0.1 10^3/uL (0.0-0.1); BASOPHILS % (AUTO) 1 % (0-10); EOSINOPHILS # (AUTO) 0.1 10^3/uL (0.0-0.3); EOSINOPHILS % (AUTO) 2 % (0-10); HEMATOCRIT 42 % (35-52); HEMOGLOBIN 14.2 G/DL (11.5-16.0); LYMPHOCYTES # (AUTO) 2.7 X 10^3 (1.0-4.0); LYMPHOCYTES % (AUTO) 29 % (12-44); MEAN CORPUSCULAR HEMOGLOBIN 29 PG (25-34); MEAN CORPUSCULAR HGB CONC 34 G/DL (32-36); MEAN CORPUSCULAR VOLUME 86 FL (80-99); MEAN PLATELET VOLUME 10.5 FL (7.4-10.4); MONOCYTES # (AUTO) 0.6 X 10^3 (0.0-1.0); MONOCYTES % (AUTO) 6 % (0-12); NEUTROPHILS # (AUTO) 5.8 X 10^3 (1.8-7.8); NEUTROPHILS % (AUTO) 63 % (42-75); PLATELET COUNT 259 10^3/uL (130-400); RED CELL DISTRIBUTION WIDTH 13.9 % (10.0-14.5); WHITE BLOOD COUNT 9.3 10^3/uL (4.3-11.0)
--- NOTE | 2018-10-10 09:16 | Diagnostic Imaging Report ---
Clinical indication: Patient with acid reflux with tingling in left arm times approximately 4 days. Patient states left facial numbness started this morning. Exam: Portable chest x-ray upright view. Comparisons: None. Findings: Limited evaluation of the anatomical structures due to patient body habitus. Lungs/pleura: Lungs are clear. There is no pneumothorax. There is no pleural effusion. Mediastinum: Unremarkable. Pulmonary vasculature: Unremarkable. Heart: Unremarkable. Bones/extrathoracic soft tissue: Unremarkable. Impression: There is no radiographic evidence of acute cardiopulmonary process. Dictated by: Dictated on workstation # [id number]
[2018-10-10 09:17] LABS: INR 0.9 (0.8-1.4); PROTHROMBIN TIME PATIENT 11.9 SEC (12.2-14.7)
[2018-10-10] MEDS ORDERED: morphine INJ 10 MG/ML 1ML (SYR OR VIAL) ONE (09:25)
[2018-10-10] MEDS ORDERED: diphenhydrAMINE 50 MG/ML INJ (BENADRYL) ONE (09:37)
[2018-10-10] MEDS ORDERED: diphenhydrAMINE 50 MG/ML INJ (BENADRYL) IVP ONE (09:45)
[2018-10-10 09:46] LABS: ALANINE AMINOTRANSFERASE 10 U/L (0-55); ALBUMIN 4.2 GM/DL (3.2-4.5); ALKALINE PHOSPHATASE 65 U/L (40-136); BILIRUBIN,TOTAL 0.2 MG/DL (0.1-1.0); BUN/CREATININE RATIO 11; CALCIUM 9.7 MG/DL (8.5-10.1); CARBON DIOXIDE 24 MMOL/L (21-32); CHLORIDE 106 MMOL/L (98-107); CREATININE SERUM 0.76 MG/DL (0.60-1.30); GFR ESTIMATED > 60; GLUCOSE 102 MG/DL (70-105); LIPASE 38 U/L (8-78); POTASSIUM 3.9 MMOL/L (3.6-5.0); SODIUM 141 MMOL/L (135-145); TOTAL PROTEIN 6.6 GM/DL (6.4-8.2)
[2018-10-10] MEDS ORDERED: KETOROLAC 30 MG/ML VIAL ONE (09:57)
[2018-10-10] MEDS ORDERED: KETOROLAC 30 MG/ML VIAL IVP STA (10:00)
[2018-10-10 10:05] LABS: MYOGLOBIN SERUM 32.7 NG/ML (10.0-92.0)
[2018-10-10] MEDS ORDERED: NS IV 1000 ML 1,000 ML IV STA (10:08)
[2018-10-10] MEDS ORDERED: NS 100 ML (IVPB) BAG IV ONE (10:15)
[2018-10-10] MEDS ORDERED: IOHEXOL 350 MG/ML 100 ML (OMNIPAQUE 350) VIAL IV ONE (10:15)
[2018-10-10] MEDS ORDERED: RECEIVED CONTRAST (Hold Metformin) IV SCH (10:15)
--- NOTE | 2018-10-10 12:31 | Diagnostic Imaging Report ---
PROCEDURE: CT abdomen and pelvis with contrast. TECHNIQUE: Multiple contiguous axial images were obtained through the abdomen and pelvis after administration of intravenous contrast. INDICATION: Upper abdominal pain. History of hiatal hernia surgery. COMPARISON: CT abdomen and pelvis with IV contrast 05/04/2014. FINDINGS: Lung bases are clear. Cholecystectomy. No hiatal hernia. The liver, pancreas, spleen, adrenals, kidneys, collecting systems, and unopacified bladder are negative. Hysterectomy. Appendectomy. No free intraperitoneal air or fluid. No lymphadenopathy. No evidence of bowel obstruction or inflammation. No acute osseous findings. IMPRESSION: No acute CT findings in the abdomen or pelvis. Chronic findings as above. Dictated by: Dictated on workstation # [id number]
--- NOTE | 2018-10-10 13:44 | NUR ---
PT STATES FEELING MUCH BETTER
[2018-10-10 13:48] LABS: MYOGLOBIN SERUM 61.2 NG/ML (10.0-92.0)
[2018-10-10 14:20] VITALS: BP 116/70
== END 2018-10-10 14:21 | disposition home or self-care (01) ==
LOC: EDUNIT# 08:12 → ER 08:15
DX: R10.10 Upper abdominal pain, unspecified (principal); R07.9 Chest pain, unspecified; E11.9 Type 2 diabetes mellitus without complications; F17.210 Nicotine dependence, cigarettes, uncomplicated; Z82.49 Family history of ischemic heart disease and other diseases of the circulatory system; Z80.0 Family history of malignant neoplasm of digestive organs; Z98.890 Other specified postprocedural states; Z87.19 Personal history of other diseases of the digestive system; Z90.710 Acquired absence of both cervix and uterus; Z87.448 Personal history of other diseases of urinary system; Z91.040 Latex allergy status; Z88.1 Allergy status to other antibiotic agents; Z91.048 Other nonmedicinal substance allergy status; Z79.84 Long term (current) use of oral hypoglycemic drugs; Z90.49 Acquired absence of other specified parts of digestive tract
CPT/HCPCS: 36415; 71045; 74177; 80053; 83690; 83735; 83874; 84443; 84484; 85025; 85379; 85610; 85730; 93005; 93041; 96361; 96374; 96375

== ENCOUNTER → 2018-11-23 | Outpatient (CLI) | payer OTHER ==
--- NOTE | 2018-11-23 19:56 | Diagnostic Imaging Report ---
INDICATION: Gastroesophageal reflux. TECHNIQUE: Patient was administered 1.1 mCi technetium 99m sulfur colloid labeled to the test meal and imaging over the abdomen was performed. FINDINGS: Time of half emptying of the test meal was calculated to be approximately 99 minutes. Normal values are typically 30-90 minutes. IMPRESSION: Slightly delayed gastric emptying. Dictated by: Dictated on workstation # [id number]
== END ==
LOC: RAD 08:30
PROVIDERS: ATTEND Surgery
DX: K21.0 Gastro-esophageal reflux disease with esophagitis (principal)
CPT/HCPCS: 78264

== ENCOUNTER → 2019-09-26 | Outpatient (CLI) | payer BC, OTHER ==
--- NOTE | 2019-09-26 14:38 | Diagnostic Imaging Report ---
INDICATION: Routine screening. Comparison is made with prior mammogram from 05/01/2007. 2-D and 3-D bilateral screening mammography was performed. The current study was also evaluated with a Computer Aided Detection (CAD) system. 3-D tomosynthesis was also performed and reviewed. FINDINGS: Scattered fibroglandular densities are identified bilaterally. No dominant mass or malignant-appearing microcalcifications are seen. Axillae are unremarkable. IMPRESSION: No mammographic features suspicious for malignancy are identified. ACR BI-RADS Category 1: Negative. Result letter will be mailed to the patient. Note: At least 10% of breast cancer is not imaged by mammography. Dictated by: Dictated on workstation # [id number]
== END ==
LOC: RAD 09:30
PROVIDERS: ATTEND Family Medicine
DX: Z12.31 Encounter for screening mammogram for malignant neoplasm of breast (principal)
CPT/HCPCS: 77067

== ENCOUNTER 2019-10-23 05:35 | Outpatient (CLI) | payer BC ==
[~2019-10-23] VITALS: Ht 167 cm; Wt 110.0 kg
[2019-10-23] MEDS ORDERED: GLYB5TAB6 PO (10:40)
== END 2019-10-23 10:47 | disposition home or self-care (01) ==
LOC: PREOP 05:35
PROVIDERS: ATTEND Surgery
DX: Z01.818 Encounter for other preprocedural examination (principal)

== ENCOUNTER 2019-10-30 08:49 | Day surgery (SDC) | payer BC ==
[~2019-10-30] VITALS: Ht 167 cm; Wt 110.0 kg
[~2019-10-30 08:49] MED LIST changes: +GLYB5TAB6 PO
[2019-10-30] MEDS ORDERED: LACTATED RINGERS 1,000 ML IV ONE (08:51)
[2019-10-30] MEDS ORDERED: LACTATED RINGERS 1,000 ML IV STA (08:57)
[2019-10-30] MEDS ORDERED: PROPOFOL INJECTION 50 ML IV ONE (09:03)
[2019-10-30] MEDS ORDERED: MIDAZOLAM 2 MG/2 ML (VERSED) VIAL ONE (09:03)
--- NOTE | 2019-10-30 09:06 | Progress Note-Pre Operative ---
Pre-Operative Progress Note H&P Reviewed The H&P was reviewed, patient examined and no changes noted. Date Seen by Provider: Oct 30, 2019 Time Seen by Provider: 09: Date H&P Reviewed: Oct 30, 2019 Time H&P Reviewed: 09:06 Pre-Operative Diagnosis: family history of colon cancer, hx of polyps GINA BLACKWOOD DO Oct 30, 2019 09:06
[2019-10-30 09:11] VITALS: BP 118/82
--- NOTE | 2019-10-30 09:48 | Progress Note-Post Operative ---
Post-Operative Progess Note Surgeon (s)/Nursing Home Physician (s) Surgeon GINA BLACKWOOD DO Nursing Home Physician: NA Pre-Operative Diagnosis family history of colon cancer, hx of polyps Post-Operative Diagnosis Normal Colon Procedure & Operative Findings Date of Procedure 10/30/19 Procedure Performed/Findings Colonoscopy Anesthesia Type per NOVELTY TWISTER OPERATOR Estimated Blood Loss Estimated blood loss (mL): None Specimens/Packing Specimens Removed None GINA BLACKWOOD DO Oct 30, 2019 09:48
[2019-10-30 09:50] VITALS: BP 136/76
--- NOTE | 2019-10-30 09:50 | Discharge Inst-Simple/Standard ---
Discharge Inst-Standard Patient Instructions/Follow Up Plan of Care/Instructions/FU: Patient needs follow up colonoscopy in five years due to family history of colon cancer. Activity as Tolerated: Yes Discharge Diet: Regular Diet GINA BLACKWOOD DO Oct 30, 2019 09:50
[2019-10-30 09:55] VITALS: BP 116/59
[2019-10-30 10:20] VITALS: BP 118/82
[2019-10-30 10:50] VITALS: BP 118/82
--- NOTE | 2019-10-30 14:08 | OPERATIVE REPORT ---
DATE OF SERVICE: 10/30/2019 PREOPERATIVE DIAGNOSIS: Family history of colon cancer, personal history of colon polyps. POSTOPERATIVE DIAGNOSIS: Normal colon. PROCEDURE: Colonoscopy. SURGEON: Gina Veliz DO. ANESTHESIA: Per CASE WORKER. ESTIMATED BLOOD LOSS: None. COMPLICATIONS: None. INDICATIONS: The patient is a 39-year-old female with family history of colon cancer and personal history of polyps. She understands the risks and benefits of the procedure and wished to proceed with the procedure. Consent was signed in the chart. DESCRIPTION OF PROCEDURE: The patient was taken to the endoscopy suite and placed in a left lateral recumbent position. Timeout was performed. Digital rectal exam was performed. There were no palpable polyps, masses or ulcerations. Scope was inserted in the rectum and advanced all the way to cecum with minimal difficulty. Prep was adequate. Scope was then slowly retracted back. There were no polyps, masses or ulcerations within the cecum, ascending, transverse, descending and sigmoid colon. Once in the rectum, scope was retroflexed noting no other pathology. Scope was returned to its normal position, slowly withdrawn until completely removed. The patient tolerated the procedure well without any complications. She was taken to recovery room in stable condition. RECOMMENDATIONS: The patient will need repeat colonoscopy in 5 years due to family history of colon cancer and personal history of polyps. Any issues before that will be seen at that time. Job ID: [id number] DocumentID: [id number] Dictated Date: 10/30/2019 09:49:14 Supportability Engineer Date: 10/30/2019 14:08:03 Dictated By: GINA VELIZ DO
--- NOTE | 2019-10-31 08:02 | Anesthesia-General Post-Op ---
MAC Patient Condition Mental Status/LOC: Same as Preop Cardiovascular: Satisfactory Nausea/Vomiting: Absent Respiratory: Satisfactory Pain: Controlled Complications: Absent Post Op Complications Complications None Follow Up Care/Instructions Patient Instructions None needed. Anesthesiology Discharge Order Discharge Order Patient is doing well, no complaints, stable vital signs, no apparent adverse anesthesia problems. No complications reported per nursing. ANA ROSA ANDREWS CRNA Oct 31, 2019 08:02
== END 2019-10-30 10:50 | disposition home or self-care (01) ==
LOC: ENDO 08:49
PROVIDERS: ATTEND Surgery
DX: Z12.11 Encounter for screening for malignant neoplasm of colon (principal); E11.9 Type 2 diabetes mellitus without complications; E66.9 Obesity, unspecified; Z86.010 Personal history of colon polyps; Z80.0 Family history of malignant neoplasm of digestive organs; Z91.048 Other nonmedicinal substance allergy status; Z91.040 Latex allergy status; Z88.1 Allergy status to other antibiotic agents; Z79.84 Long term (current) use of oral hypoglycemic drugs; Z79.899 Other long term (current) drug therapy; Z87.891 Personal history of nicotine dependence; Z68.39 Body mass index [BMI] 39.0-39.9, adult; Z90.710 Acquired absence of both cervix and uterus; Z90.49 Acquired absence of other specified parts of digestive tract; Z82.61 Family history of arthritis
CPT/HCPCS: 82962

== ENCOUNTER → 2021-06-08 | Outpatient (CLI) | payer BC ==
[~2021-06-08] MED LIST changes: +GLBR5T PO; -GLYB5TAB6 PO
--- NOTE | 2021-06-08 17:53 | Diagnostic Imaging Report ---
EXAM: Digital mammogram bilateral screening COMPARISON: This study was compared to the prior exam of 09/26/2019. At this time, there are no current complaints. The current study was also evaluated with a Computer Aided Detection (CAD) system. FINDINGS: There are scattered fibroglandular densities in both breasts which could obscure a lesion. Overall, there does not appear to have been any significant change when compared to the prior exam. No primary or secondary sign of malignancy is noted. IMPRESSION: There is no radiographic evidence for malignancy. ACR category 1 ACR BI-RADS Category 1: Negative. Result letter will be mailed to the patient. Note: At least 10% of breast cancer is not imaged by mammography. Dictated by: Dictated on workstation # [id number]
== END ==
LOC: RAD 14:30
PROVIDERS: ATTEND Family Medicine
DX: Z12.31 Encounter for screening mammogram for malignant neoplasm of breast (principal)
CPT/HCPCS: 77063; 77067

== ENCOUNTER → 2021-10-01 | Outpatient (CLI) | payer BC ==
[~2021-10-01] MED LIST changes: +BARIUM for suspension 96% w/w (Vanilla Silq Medium Density) PO ONE; +BARIUM for suspension 98% w/w (Vanilla Silq High Density) PO ONE
--- NOTE | 2021-10-01 11:18 | Diagnostic Imaging Report ---
Indication: Dysphasia. Patient ingested effervescent crystals as well as thin and thick barium and imaging of the esophagus was performed at multiple obliquities. Total of 0.94 minutes of fluoroscopic time was utilized. 60 images were obtained. The esophagus has a smooth contour. No mass or stricture is seen. No gastroesophageal reflux or hiatal hernia was demonstrated. There appear to be postoperative changes near the GE junction. Visualized stomach is unremarkable. IMPRESSION: Postop changes at the GE junction. Study is essentially unremarkable. Dictated by: Dictated on workstation # [id number]
== END ==
LOC: RAD 09:45
PROVIDERS: ATTEND Surgery
DX: R13.10 Dysphagia, unspecified (principal); Z98.890 Other specified postprocedural states
CPT/HCPCS: 74220

== ENCOUNTER 2021-10-16 05:29 | Outpatient (RCR) | payer BC ==
[~2021-10-16] VITALS: Ht 167 cm; Wt 107.0 kg
== END 2021-10-16 13:49 | disposition home or self-care (01) ==
LOC: PREOP 05:29
PROVIDERS: ATTEND Surgery
DX: Z01.818 Encounter for other preprocedural examination (principal); R13.10 Dysphagia, unspecified

== ENCOUNTER → 2021-10-16 | Outpatient (CLI) | payer BC ==
[~2021-10-16] MED LIST changes: -BARIUM for suspension 96% w/w (Vanilla Silq Medium Density) PO ONE; -BARIUM for suspension 98% w/w (Vanilla Silq High Density) PO ONE; +DULA1.5P2 SQ
== END ==
LOC: LABNPT 06:38
PROVIDERS: ATTEND Surgery
DX: Z20.822 Contact with and (suspected) exposure to COVID-19 (principal)
CPT/HCPCS: 87636

== ENCOUNTER 2021-10-20 09:30 | Day surgery (SDC) | payer BC ==
[~2021-10-20] VITALS: Ht 167.6 cm; Wt 107.0 kg
[2021-10-20] MEDS ORDERED: LACTATED RINGERS 1,000 ML IV STA (09:34)
[2021-10-20] MEDS ORDERED: LACTATED RINGERS 1,000 ML IV ONE (09:37)
[2021-10-20 09:45] VITALS: BP 116/75
[2021-10-20] MEDS ORDERED: HURRICAINE EXT TUBE (BENZOCAINE) XX PRN (09:45)
[2021-10-20] MEDS ORDERED: MIDAZOLAM 2 MG/2 ML (VERSED) VIAL ONE (10:14)
[2021-10-20] MEDS ORDERED: proPOfol 200 MG/20 ML (DIPRIVAN) VIAL IV ONE (10:14)
[2021-10-20 10:35] VITALS: BP 132/66
[2021-10-20 10:40] VITALS: BP 129/68
--- NOTE | 2021-10-20 10:42 | Progress Note-Post Operative ---
Post-Operative Progess Note Surgeon (s)/Crime Laboratory Analyst (s) Surgeon GINA BLACKWOOD DO Crime Laboratory Analyst: na Pre-Operative Diagnosis dysphagia Post-Operative Diagnosis gastritis,duodenitis Procedure & Operative Findings Date of Procedure 10/20/21 Procedure Performed/Findings egd c biopsies Anesthesia Type per braiding machine operator Estimated Blood Loss Estimated blood loss (mL): none Specimens/Packing Specimens Removed duodenum, antrum, ge GINA BLACKWOOD DO Oct 20, 2021 10:42
[2021-10-20 10:45] VITALS: BP 132/68
[2021-10-20] MEDS ORDERED: PANT40TA2 PO (10:46)
--- NOTE | 2021-10-20 10:47 | Discharge Inst-Simple/Standard ---
Discharge Inst-Standard Discharge Medications New, Converted or Re-Newed RX: Transmitted to Pharmacy Patient Instructions/Follow Up Plan of Care/Instructions/FU: 2-3 weeks Keren Activity as Tolerated: Yes Discharge Diet: Regular Diet GINA BLACKWOOD DO Oct 20, 2021 10:47
[2021-10-20 11:05] VITALS: BP 133/75
[2021-10-20 11:15] VITALS: BP 133/75
--- NOTE | 2021-10-20 11:54 | Anesthesia-General Post-Op ---
MAC Patient Condition Mental Status/LOC: Same as Preop Cardiovascular: Satisfactory Nausea/Vomiting: Absent Respiratory: Satisfactory Pain: Controlled Complications: Absent Post Op Complications Complications None Follow Up Care/Instructions Patient Instructions None needed. Anesthesiology Discharge Order Discharge Order Patient is doing well, no complaints, stable vital signs, no apparent adverse anesthesia problems. No complications reported per nursing. RODRIGO RUSSELL CRNA Oct 20, 2021 11:54
--- NOTE | 2021-10-20 18:26 | OPERATIVE REPORT ---
DATE OF SERVICE: 10/20/2021 PREOPERATIVE DIAGNOSIS: Dysphagia. POSTOPERATIVE DIAGNOSES: Gastritis, duodenitis, PROCEDURE: EGD with biopsies. SURGEON: Gina Veliz DO ANESTHESIA: Per RESIDENTIAL SOLAR SALES CONSULTANT. ESTIMATED BLOOD LOSS: None. COMPLICATIONS: None. SPECIMENS: Duodenum, antrum and GE junction. INDICATIONS: The patient is a 41-year-old female who has history of hiatal hernia repair. She has been having some dysphagia symptoms. She understands risks and benefits of procedure and wishes to proceed. Consent was signed in the chart. DESCRIPTION OF PROCEDURE: The patient was taken to the endoscopy suite, placed in left lateral recumbent position. Timeout was performed. Scope was inserted in mouth, down the esophagus, stomach and into the duodenum without difficulty. Second portion of duodenum had normal appearance. Scope was slowly retracted and the first portion of duodenum had some erythematous changes. Biopsy of the duodenum was obtained. Scope was then slowly retracted back into the stomach, which had erythematous hue slight appearance of gastritis. Biopsy of the antrum was obtained. Scope was retroflexed noting an intact wrap fundoplication. No other pathology noted. Scope was returned to its normal position. Scope was then slowly retracted back to the distal esophagus. Biopsy of the GE junction was obtained. No polyps, masses or ulcerations. Scope was slowly retracted back until completely removed. The patient tolerated the procedure well without any complications. She was taken to recovery room in stable condition. RECOMMENDATIONS: The patient will change omeprazole to Protonix 40 mg daily. We will follow up in two to three weeks to see how her symptoms are doing. Follow up on pathology. Job ID: [id number] DocumentID: [id number] Dictated Date: 10/20/2021 10:44:31 Coupon Redemption Clerk Date: 10/20/2021 18:26:16 Dictated By: GINA VELIZ DO
== END 2021-10-20 11:15 | disposition home or self-care (01) ==
LOC: ENDO 09:30
PROVIDERS: ATTEND Surgery
DX: K29.70 Gastritis, unspecified, without bleeding (principal); K29.80 Duodenitis without bleeding; K20.90 Esophagitis, unspecified without bleeding; F17.210 Nicotine dependence, cigarettes, uncomplicated

== ENCOUNTER → 2021-12-31 | Outpatient (CLI) | payer BC ==
[~2021-12-31] MED LIST changes: +PANT40TA2 PO
--- NOTE | 2021-12-31 10:36 | Diagnostic Imaging Report ---
INDICATION: Cough since Tuesday. EXAMINATION: 2 view chest 12/31/2021. COMPARISON: 10/10/2018 FINDINGS: The cardiomediastinal silhouette is unremarkable. The pulmonary vasculature is within normal limits. The lungs and pleural spaces are clear. IMPRESSION: No evidence of an acute cardiopulmonary process. Dictated by: Dictated on workstation # [id number]
== END ==
LOC: RAD 08:59
PROVIDERS: ATTEND Family Medicine
DX: R05.9 Cough, unspecified (principal)
CPT/HCPCS: 71046

== ENCOUNTER → 2022-07-12 | Outpatient (CLI) | payer BC ==
--- NOTE | 2022-07-12 10:58 | Diagnostic Imaging Report ---
INDICATION: Routine screening. COMPARISON: 06/08/2021 and 09/26/2019. TECHNIQUE: 2D and 3D bilateral screening mammography was performed with CAD. FINDINGS: Scattered fibroglandular densities are identified bilaterally. The parenchymal pattern is stable. No mass or malignant-appearing microcalcifications are seen. The axillae are unremarkable. IMPRESSION: No mammographic features suspicious for malignancy are identified. ACR BI-RADS Category 1: Negative. Result letter will be mailed to the patient. Note: At least 10% of breast cancer is not imaged by mammography. Dictated by: Dictated on workstation # [id number]
== END ==
LOC: RAD 08:59
PROVIDERS: ATTEND Family Medicine
DX: Z12.31 Encounter for screening mammogram for malignant neoplasm of breast (principal)
CPT/HCPCS: 77063; 77067